=== PATIENT | male | born 1990 | race Hispanic/Latino ===

== ENCOUNTER 2019-05-01 20:31 | Emergency (ER) | payer SELFPAY ==
--- NOTE | 2019-05-01 21:20 | RAD ---
RIGHT HAND THREE VIEWS: HISTORY: Log fell on hand with pain. COMPARISON: None. FINDINGS: Three views of the rightt hand show no evidence of acute fracture or dislocation. No degenerative ch anges are seen. No soft tissue swelling is present. IMPRESSION: No evidence of acute osseous abnormality. POS: C
== END 2019-05-01 21:42 | disposition home or self-care (01) ==
LOC: ERS 20:31
DX: S60.011A Contusion of right thumb without damage to nail, initial encounter (principal); F17.210 Nicotine dependence, cigarettes, uncomplicated; W20.8XXA Other cause of strike by thrown, projected or falling object, initial encounter

== ENCOUNTER 2020-03-10 14:21 | Emergency (ER) | payer OTHER, SELFPAY ==
[2020-03-11 18:50] LABS: SARS-CoV-2 MS2 Positive; SARS-CoV-2 N Gene Positive; SARS-CoV-2 S Gene Negative; SARS-CoV-2 orf1ab Positive
== END 2020-03-10 14:52 | disposition home or self-care (01) ==
LOC: ERS 14:21
DX: U07.1 COVID-19 (principal)
CPT/HCPCS: 87635; 99283; U0003